=== PATIENT | female | born 1945 | race Caucasian/White ===

== ENCOUNTER 2021-08-15 13:45 | Inpatient (IN) | payer MEDICARE, MEDICAID ==
[~2021-08-15] VITALS: Ht 162.6 cm; Wt 70.1 kg
[2021-08-15 16:12] LABS: HEMOGLOBIN 12.5 g/dl (12.5-16.0); MEAN CELL VOLUME 84 fl (80.0-100.0); MEAN CORPUSCULAR HEMOGLOBIN 28 pg (27-31); MEAN CORPUSCULAR HGB CONC 34 g/dl (33.0-37.0); MEAN PLATELET VOLUME 9.7 fl (7.4-10.4); PLATELET COUNT 185 K/mm3 (130-400); RED BLOOD COUNT 4.42 M/mm3 (4.10-5.30)
[2021-08-15 16:18] LABS: HEMATOCRIT 36.9 % (37.0-47.0)
[2021-08-15 16:24] LABS: ALBUMIN 2.7 gm/dL (3.4-4.8); BILIRUBIN,TOTAL 0.6 mg/dL (0.2-1.2); C-REACTIVE PROTEIN 7.71 mg/dL (0.00-0.50); CALCIUM 8.2 mg/dL (8.4-10.2); CREATININE, serum 0.76 mg/dL (0.57-1.11); POTASSIUM 3.4 mmol/L (3.5-4.5); TOTAL PROTEIN 6.4 gm/dL (6.2-8.1)
[2021-08-15 17:12] LABS: BAND 8 % (0-10); LYMPHOCYTE 13 % (20.0-51.0); NEUTROPHILS 75 % (42.0-75.2); PLATELET ESTIMATE NORMAL (NORMAL)
[2021-08-15] MEDS ORDERED: SYNTHROID0.075 MG/T PO (18:36)
[2021-08-15] MEDS ORDERED: BREO ELLIPTA 21 EACH IH (18:37)
[2021-08-15 21:24] VITALS: BP 115/76; PULSE 94; TEMP 98.5
[2021-08-16 00:52] VITALS: BP 118/72; PULSE 87; TEMP 98.1
[2021-08-16 04:45] VITALS: BP 112/52; PULSE 72; TEMP 97.5
--- NOTE | 2021-08-16 05:36 | NUR ---
UPON ARRIVAL PATIENT WAS ORIENTED TO ROOM. PATIENT RESTED QUIETLY IN BED THROUGHOUT THE NIGHT. NO NEW ISSUES NOTED OR REPORTED BY PATIENT.
[2021-08-16 06:51] LABS: HEMATOCRIT 38.8 % (37.0-47.0); HEMOGLOBIN 12.6 g/dl (12.5-16.0); MEAN CELL VOLUME 87 fl (80.0-100.0); MEAN CORPUSCULAR HEMOGLOBIN 28 pg (27-31); MEAN CORPUSCULAR HGB CONC 33 g/dl (33.0-37.0); MEAN PLATELET VOLUME 9.8 fl (7.4-10.4); PLATELET COUNT 196 K/mm3 (130-400); RED BLOOD COUNT 4.46 M/mm3 (4.10-5.30); REDCELL DISTRIBUTION WIDTH-CV 14.1 % (11.5-14.5)
[2021-08-16 06:53] LABS: C-REACTIVE PROTEIN 8.31 mg/dL (0.00-0.50); CALCIUM 8.6 mg/dL (8.4-10.2); CREATININE, serum 0.74 mg/dL (0.57-1.11)
[2021-08-16 07:40] LABS: MAGNESIUM 2.1 mg/dL (1.6-2.6)
[2021-08-16 08:15] VITALS: BP 119/54; PULSE 82; TEMP 97.8
--- NOTE | 2021-08-16 10:00 | NUR ---
Assessment completed, alert/oriented, vital signs stable, denies pain or discomfort, lungs are CTA/ she is more SOA with exertion but has home O2 at baseline r/t her COPD history, currently on 4L., heart RRR/distal pulses are palpable, she is working with PT/OT, denies other needs at this time
[2021-08-16 11:20] VITALS: BP 131/60; PULSE 94; TEMP 97.9
--- NOTE | 2021-08-16 11:30 | NUR ---
Patient covid+. Intake completed via phone. Patient reports that she lives alone at home in [facility]. States she has been fully independent with her ADL's " up until i got this". Patient utilize a walker to assist with ambulation. Patient utilizes 2L of home oxygen at night that is managed through [facility]. PCP is Dr. Montesinos and and she utilizes [facility] for medications with no cost difficult. Patient does not have a DPOA-HC established. Jayce ([phone]) is her only child and she is . During ER visit, patient's son verbalized concerns over his mothers weakness. Discharge plan: *PT/OT pending
[2021-08-16 16:00] VITALS: BP 128/63; PULSE 91; TEMP 97.6
[2021-08-16 19:48] VITALS: BP 131/55; PULSE 88; TEMP 97.4
[2021-08-17 00:34] VITALS: BP 122/56; PULSE 107; TEMP 97.8
[2021-08-17 04:52] VITALS: BP 122/59; PULSE 91; TEMP 98.7
--- NOTE | 2021-08-17 05:41 | NUR ---
PATIENT CALM AND COOPERATIVE THROUGHOUT THE NIGHT. UP TO THE BATHROOM 3 TIMES THIS SHIFT. FALL PRECAUTIONS IN PLACE. NO NEW ISSUES NOTED OR REPORTED BY PATIENT.
[2021-08-17 07:58] LABS: C-REACTIVE PROTEIN 4.23 mg/dL (0.00-0.50); CALCIUM 8.4 mg/dL (8.4-10.2); CREATININE, serum 0.69 mg/dL (0.57-1.11); POTASSIUM 3.7 mmol/L (3.5-4.5)
[2021-08-17 08:34] VITALS: BP 129/56; PULSE 91; TEMP 98.2
[2021-08-17 08:39] LABS: HEMATOCRIT 38.5 % (37.0-47.0); HEMOGLOBIN 12.7 g/dl (12.5-16.0); MEAN CELL VOLUME 87 fl (80.0-100.0); MEAN CORPUSCULAR HEMOGLOBIN 29 pg (27-31); MEAN CORPUSCULAR HGB CONC 33 g/dl (33.0-37.0); MEAN PLATELET VOLUME 9.9 fl (7.4-10.4); PLATELET COUNT 263 K/mm3 (130-400); RED BLOOD COUNT 4.44 M/mm3 (4.10-5.30); REDCELL DISTRIBUTION WIDTH-CV 13.9 % (11.5-14.5)
--- NOTE | 2021-08-17 09:42 | NUR ---
PT ASSESSED. NO COMPLAINTS OF PAIN OR DYSPNEA. NO SIGNS OR SYMPTOMS OF DISTRESS. CALL LIGHT WITHIN REACH. PT IS COMPLAINING ABOUT MEDICATION AND REPORTS NOT WANTING TO TAKE ANYTHING RELATED TO THE REMDESIVIR. SHE QUSTIONS BOTH MEDICATIONS GIVEN THIS MORNING ASKING IF THEY HAVE ANYTHING TO DO WITH THE REMDESIVIR. EDUCATED AND MEDICATIONS ADMINISTERED, HOWEVER PT STILL APPEARS TO BE UNHAPPY AND ANNOYED AT CARE.
[2021-08-17 12:34] VITALS: BP 122/54; PULSE 92; TEMP 97.8
[2021-08-17 16:15] VITALS: BP 131/63; PULSE 90; TEMP 97.7
[2021-08-17 21:09] VITALS: BP 135/65; PULSE 103; TEMP 98
[2021-08-18 04:57] VITALS: BP 133/63; PULSE 88; TEMP 98.2
[2021-08-18 08:17] VITALS: BP 127/60; PULSE 87; TEMP 97.3
--- NOTE | 2021-08-18 11:13 | NUR ---
PT ASSESSED. NO COMPLAINTS OF PAIN OR DYSPNEA. NO SIGNS OR SYMPTOMS OF DISTRESS. CALL LIGHT WITHIN REACH
[2021-08-18 13:45] VITALS: BP 120/58; PULSE 95; TEMP 97.7
--- NOTE | 2021-08-18 15:12 | NUR ---
ZION faxed referrals to [facility] in [facility].
[2021-08-18 18:28] VITALS: BP 131/62; PULSE 93; TEMP 97.8
[2021-08-18 18:30] VITALS: BP 131/62; PULSE 20; TEMP 97.8
[2021-08-19] VITALS (7 sets, daily range): BP systolic 117–151; BP diastolic 60–74; PULSE 79–95; TEMP 97.4–98
[2021-08-19 07:10] LABS: HEMATOCRIT 39.5 % (37.0-47.0); HEMOGLOBIN 12.7 g/dl (12.5-16.0); MEAN CELL VOLUME 87 fl (80.0-100.0); MEAN CORPUSCULAR HEMOGLOBIN 28 pg (27-31); MEAN CORPUSCULAR HGB CONC 32 g/dl (33.0-37.0); PLATELET COUNT 291 K/mm3 (130-400); RED BLOOD COUNT 4.52 M/mm3 (4.10-5.30); REDCELL DISTRIBUTION WIDTH-CV 13.9 % (11.5-14.5)
[2021-08-19 07:28] LABS: CALCIUM 8.7 mg/dL (8.4-10.2); CREATININE, serum 0.69 mg/dL (0.57-1.11)
--- NOTE | 2021-08-19 09:54 | NUR ---
PT ASSESSED. NO COMPLAINTS OF PAIN OR DYSPNEA. NO SIGNS OR SYMPTOMS OF DISTRESS. CALL LIGHT WITHIN REACH
--- NOTE | 2021-08-19 14:36 | NUR ---
Social Work student faxed updates to both [facility] and [facility].
[2021-08-20 05:39] VITALS: BP 141/74; PULSE 93; TEMP 97.5
[2021-08-20 06:31] LABS: HEMATOCRIT 39.1 % (37.0-47.0); HEMOGLOBIN 13.1 g/dl (12.5-16.0); MEAN CELL VOLUME 87 fl (80.0-100.0); MEAN CORPUSCULAR HEMOGLOBIN 29 pg (27-31); MEAN CORPUSCULAR HGB CONC 34 g/dl (33.0-37.0); MEAN PLATELET VOLUME 10.1 fl (7.4-10.4); PLATELET COUNT 342 K/mm3 (130-400); RED BLOOD COUNT 4.51 M/mm3 (4.10-5.30)
[2021-08-20 06:50] LABS: ALBUMIN 2.6 gm/dL (3.4-4.8); CALCIUM 8.6 mg/dL (8.4-10.2); CREATININE, serum 0.69 mg/dL (0.57-1.11); MAGNESIUM 2.3 mg/dL (1.6-2.6); PHOSPHOROUS 3.2 mg/dL (2.3-4.7); POTASSIUM 4.2 mmol/L (3.5-4.5)
[2021-08-20 08:34] LABS: LYMPHOCYTE 14 % (20.0-51.0); NEUTROPHILS 78 % (42.0-75.2); PLATELET ESTIMATE NORMAL (NORMAL)
[2021-08-20 08:45] VITALS: BP 129/76; PULSE 80; TEMP 97.3
--- NOTE | 2021-08-20 10:15 | NUR ---
PHYSICAL THERAPY AT BEDSIDE WITH PT. PT STATES THAT SHE IS FEELING "WEAK AND SHAKY". PT OS WAS AT 96% ON 3.5 LITERS VIA NC. PT BS WAS 187. PT STATES THAT SHE DOES NOT FEEL LIKE FOING THERAPY TODAY. "I JUST WANT TO GO LAY DOWN IN BED, I THINK THAT I OVER DID IT YESTERDAY." DR. LAKE AT BEDSIDE STATES THAT SHE IS "PROBABLY WEAK FROM THE INFECTION." HELPED PT FROM CHAIR BACK TO BED. CALL LIGHT WAS PLACED WITHIN REACH. PT STATES NO OTHER NEEDS AT THIS TIME.
[2021-08-20 12:27] VITALS: BP 131/62; PULSE 78; TEMP 97.5
--- NOTE | 2021-08-20 14:37 | NUR ---
Bj at [facility] advised they can accept patient 10 days after patient's positive covid test and if they have bed availability at that time.
[2021-08-20 15:48] VITALS: BP 142/76; PULSE 84; TEMP 97.9
--- NOTE | 2021-08-20 15:55 | NUR ---
PT UP IN CHAIR. PT STATES THAT SHE ALREADY TOOK ALL OF HER MEDICATIONS THIS AM. PT STATES THAT SHE IS NOT HAVING PAIN. NO OTHER NEEDS WERE VOICED. CALL LIGHT IS WITHIN REACH.
[2021-08-20 21:16] VITALS: BP 134/60; PULSE 83; TEMP 98
[2021-08-21] VITALS (7 sets, daily range): BP systolic 114–158; BP diastolic 59–81; PULSE 80–93; TEMP 97.3–97.8
--- NOTE | 2021-08-21 05:48 | NUR ---
THIS NURSE WAS INSTRUCTED AT BEGINNING OF SHIFT BY PREVIOUS SHIFT THAT PT HAS PERSONAL MEDICATIONS IN ROOM AND STAFF IS FOLLOWING. THIS NURSE DID NOT BRING PT ANY STOCK MEDS. PT VERBALIZES SHE WOULD TAKE THIS MORNING LEVOTHYROXINE FROM HER OWN PERSONAL MEDICATION STORAGE. THIS NURSE REVIEWED THE IMPORTANCE OF CONTRAINDICATIONS AND SAFETY WELL WAY TO AVOID MISHANDLING. PT VERBALIZES UNDERSTANDING. PT A/OX4. ALL NEEDS MET THI SHIFT. [facility].
[2021-08-21 06:39] LABS: HEMATOCRIT 39.6 % (37.0-47.0); HEMOGLOBIN 12.7 g/dl (12.5-16.0); MEAN CELL VOLUME 88 fl (80.0-100.0); MEAN CORPUSCULAR HEMOGLOBIN 28 pg (27-31); MEAN CORPUSCULAR HGB CONC 32 g/dl (33.0-37.0); MEAN PLATELET VOLUME 9.9 fl (7.4-10.4); PLATELET COUNT 397 K/mm3 (130-400); REDCELL DISTRIBUTION WIDTH-CV 13.7 % (11.5-14.5)
--- NOTE | 2021-08-21 07:00 | NUR ---
Report received from SARAH Eason. PT in bed resting ,will continue to monitor.
[2021-08-21 07:09] LABS: ALBUMIN 2.7 gm/dL (3.4-4.8); CALCIUM 8.6 mg/dL (8.4-10.2); CREATININE, serum 0.69 mg/dL (0.57-1.11); MAGNESIUM 2.3 mg/dL (1.6-2.6); PHOSPHOROUS 3.1 mg/dL (2.3-4.7)
[2021-08-21 07:47] LABS: BAND 1 % (0-10); LYMPHOCYTE 12 % (20.0-51.0); NEUTROPHILS 80 % (42.0-75.2)
[2021-08-21 07:48] LABS: PLATELET ESTIMATE NORMAL (NORMAL)
--- NOTE | 2021-08-21 09:50 | NUR ---
Assessment charted. Pt up with therapy. Very concerned about lovenox shot, gave and pt much less anxious. Resting in chair eating, denies pain. Has own home meds: levothyroxine, breo, and claritin that pt took at 0515 on own. Denies pain, on 2L NC states she feels no more short of breath than normal, 2L NC is baseline. INT to WILI. Resting well, denies needs, will continue to monitor,.
--- NOTE | 2021-08-21 14:35 | NUR ---
Poacher Wringer Operator attempted to contact patient with no answer. SW contacted patient's son, Jayce and provided update. SW advised Jayce that [facility] can accept patient after day 10 and he is agreeable to this plan. Discharge Plan: [facility]
--- NOTE | 2021-08-21 19:33 | NUR ---
Report given to nightshift nurse. Pt resting in bed or up to chair, doing well and not over exerting herself. Denies needs.
[2021-08-22 00:32] VITALS: BP 127/83; PULSE 91; TEMP 97.6
[2021-08-22 04:00] VITALS: BP 138/65; PULSE 64; TEMP 97.9
--- NOTE | 2021-08-22 05:22 | NUR ---
PT TOLERATED BIPAP ALL NIGHT. FIO2 DECREASED TO 55. PUREWICK IN PLACE AND FULLY FUNCTIONAL.PT EXPRESSES NO ADDITIONAL NEEDS AT THIS TIME. ALL NEEDS MET THIS SHIFT. CALL LIGHT WITHIN REACH.
--- NOTE | 2021-08-22 05:23 | NUR ---
PT HAD UNEVENTFUL NIGHT THIS SHIFT.PT REMAINS ON 2L (BL) OF 02. 3 ALL NEEDS MET. CALL LIGHT WITHIN REACH.
--- NOTE | 2021-08-22 05:38 | NUR ---
AT THIS TIME PT REFUSES LAB DRAW FROM PRINT FINISHER. PT PROVIDED EDUCATION ON IMPORTANCE. PT CONTINUES TO REFUSE LAB DRAW.
[2021-08-22 08:52] VITALS: BP 117/63; PULSE 91; TEMP 97.5
[2021-08-22 12:49] VITALS: BP 134/50; PULSE 83; TEMP 97.7
--- NOTE | 2021-08-22 15:04 | NUR ---
Optical Instrument Assembly Supervisor faxed clinical updates to [facility]. SW contacted patient and updated her that [facility] can accept her on Thursday. Patient is agreeable to discharge to [facility]. Discharge Plan: [facility] SNF
[2021-08-22 16:41] VITALS: BP 121/54; PULSE 87
--- NOTE | 2021-08-22 18:35 | NUR ---
Patient has had an uneventful day. Currently requiring 0.5L of O2 via nasal cannula. VSS. Patient A&O. Patient denies any pain, discomfort, SOA. or further needs at this time. Call light in reach. Fall percautions in place.
[2021-08-22 20:31] VITALS: BP 142/59; PULSE 87; TEMP 97.8
[2021-08-23 04:20] VITALS: BP 132/61; PULSE 85; TEMP 97.5
[2021-08-23 06:30] LABS: HEMOGLOBIN 13.2 g/dl (12.5-16.0); MEAN CELL VOLUME 87 fl (80.0-100.0); MEAN CORPUSCULAR HEMOGLOBIN 29 pg (27-31); MEAN CORPUSCULAR HGB CONC 33 g/dl (33.0-37.0); MEAN PLATELET VOLUME 9.8 fl (7.4-10.4); PLATELET COUNT 431 K/mm3 (130-400); RED BLOOD COUNT 4.61 M/mm3 (4.10-5.30); REDCELL DISTRIBUTION WIDTH-CV 13.9 % (11.5-14.5)
[2021-08-23 06:47] LABS: ALBUMIN 2.9 gm/dL (3.4-4.8); CALCIUM 9.2 mg/dL (8.4-10.2); CREATININE, serum 0.71 mg/dL (0.57-1.11); MAGNESIUM 2.5 mg/dL (1.6-2.6); PHOSPHOROUS 3.8 mg/dL (2.3-4.7); POTASSIUM 4.3 mmol/L (3.5-4.5)
[2021-08-23 07:25] VITALS: BP 126/66; PULSE 93; TEMP 98
[2021-08-23 08:29] LABS: BAND 1 % (0-10); LYMPHOCYTE 14 % (20.0-51.0); METAMYELOCYTE 2 % (0-0); NEUTROPHILS 72 % (42.0-75.2)
[2021-08-23 08:30] LABS: PLATELET ESTIMATE NORMAL (NORMAL)
[2021-08-23 11:17] VITALS: BP 133/61; PULSE 86; TEMP 97.8
--- NOTE | 2021-08-23 11:58 | NUR ---
Scheduled medications given. Shift assessment performed. VSS. Patient A&O. Patient denies any pain, discomfort, SOA, or further needs at this time. Call light in reach.
--- NOTE | 2021-08-23 15:24 | NUR ---
automobile body worker faxed authorization request to [facility] for admission Thursday to [facility] for skilled care.
[2021-08-23 16:52] VITALS: BP 132/65; PULSE 80; TEMP 98.2
[2021-08-23 19:18] VITALS: BP 138/69; PULSE 85; TEMP 98.1
[2021-08-23 23:15] VITALS: BP 128/50; PULSE 76; TEMP 98
[2021-08-24 04:13] VITALS: BP 120/74; PULSE 86; TEMP 97.7
--- NOTE | 2021-08-24 05:00 | NUR ---
NO NEW ISSUES NOTED OR REPORTED BY PATIENT THROUGHOUT THE SHIFT. PATIENT CALM AND COOPERATIVE.
[2021-08-24 07:27] LABS: HEMATOCRIT 41.4 % (37.0-47.0); HEMOGLOBIN 13.5 g/dl (12.5-16.0); MEAN CELL VOLUME 87 fl (80.0-100.0); MEAN CORPUSCULAR HEMOGLOBIN 28 pg (27-31); MEAN CORPUSCULAR HGB CONC 33 g/dl (33.0-37.0); MEAN PLATELET VOLUME 10.4 fl (7.4-10.4); PLATELET COUNT 474 K/mm3 (130-400); RED BLOOD COUNT 4.77 M/mm3 (4.10-5.30); REDCELL DISTRIBUTION WIDTH-CV 13.9 % (11.5-14.5)
--- NOTE | 2021-08-24 07:39 | NUR ---
PT SITTING UP IN CHAIR. RESP AT BED SIDE. PT STATES THAT SHE "WANTS TO BE LEFT ALONE." "I JUST NEED TO READJUST AND GET COMFORTABLE." ASSISTED PT TO RESPOSITION IN BED. PT STATES THAT SHE IS NOT AHVING PAIN AND DOES NOT NEED ANYTHING ELSE. "JUST LEAVE ME ALONE AND LET ME REST." LEIAL NAVABRITTABenji IS WITHIN REACH.
[2021-08-24 07:51] LABS: ALBUMIN 3.3 gm/dL (3.4-4.8); CALCIUM 9.2 mg/dL (8.4-10.2); CREATININE, serum 0.73 mg/dL (0.57-1.11); MAGNESIUM 2.6 mg/dL (1.6-2.6); PHOSPHOROUS 3.6 mg/dL (2.3-4.7); POTASSIUM 4.6 mmol/L (3.5-4.5)
[2021-08-24 08:02] LABS: BAND 4 % (0-10); HYPOCHROMIA 1+; LYMPHOCYTE 18 % (20.0-51.0); MYELOCYTE 1 % (0-0); NEUTROPHILS 69 % (42.0-75.2); PLATELET ESTIMATE INCREASED (NORMAL)
--- NOTE | 2021-08-24 09:14 | NUR ---
PT SITTING UP AT BEDSIDE BALANCING WALLET AND POP CAP UNDER HAND. PT STATES THAT SHE CAN NOT DO ANYTHING ELSE "I HAVE TO BALANCE THIS, IT IS PROTOCOL." TRIED TO GET PT TO EXPLAIN THE PURPOSE. PT BECAME VERY AGITATED AND STARTS YELLING "LEAVE ME ALONE, I NEED TO CONCENTRATE." PT REFUSES TO TAKE MEDICATIONS, EAT BREAKFAST OR MOVE. TRIED TO EXPLAIN TO PT THAT BALANCING HER WALLET WAS NOT GOING TO HELP HER WITH HER COVID. PT DID NOT VOICE UNDERSTANDING. JUST KEEPS STATING "LEAVE ME ALONE." EXPLAINED TO PT THAT I WOULD LEAVE AND IF SHE NEEDED ANYTHING TO PUT THE CALL LIGHT ON. ORIENTED PT TO LIGHT. PT STATES "OH, IF I NEED SOMETHING I WILL LET YOU KNOW." CALL LIGHT IS WITHIN REACH.
--- NOTE | 2021-08-24 10:34 | NUR ---
PT SITTING UP IN BED. PT STATING THAT SHE "NEEEDS HELP." PT STATES THAT SHE NEEDS ME TO "PUSH THE WHITE BUTTON." GOT PTS CALL LIGHT FOR HER AND SHE STARTS YELLING "PUSH THE BUTTON, PUSH THE BUTTON." I ASKED PT TO TELL ME WHERE THE BUTTON IS AND PT STATES "THE WHITE ONE ON MY ARM." THE "WHITE BUTTON" WAS A GUAZE AND PAPER TAPE ON HER ARM. ONCE I PUSHED IT, PT STATES "OK, NOW I AM GOOD TO GO AND CAN EAT." ASSISTED PT TO SIT UP AT SIDE OF BED AND EAT BREAKFAST. PT STATES NO OTHER NEEDS AT THIS TIME. 2 LIT VIA NC IS ON. PT 02 IS AT 96%. CALL LIGHT IS WITHIN REACH. ON FLOOR AND INFORMED HIM OF PT CURRENT STATE. STATES "OK, I WILL GET TO HER."
[2021-08-24 12:14] VITALS: BP 132/61; PULSE 83; TEMP 97.6
--- NOTE | 2021-08-24 14:50 | NUR ---
SW called son to review IM form and obtain verbal consent for form. Patient due to go to [facility] on Thursday, 2021 Form placed in patient's chart and copy made. SW will continue to follow.
[2021-08-24 16:25] VITALS: BP 139/65; PULSE 105; TEMP 97.5
--- NOTE | 2021-08-24 18:47 | NUR ---
PT LAYING IN BED COVERED UP. PT STATES THAT SHE DOES NOT WANT ANY DINNER BUT DOES WANT TO DRINK HER ENSURE. PT STATES THAT SHE IS NOT HAVING ANY PAIN OR VOICED ANY OTHER NEEDS AT THIS TIME. CALL LIGHT IS WITHIN REACH.
[2021-08-24 20:44] VITALS: BP 118/93; PULSE 90; TEMP 98.2
[2021-08-25 00:23] VITALS: BP 110/47; PULSE 81; TEMP 97.5
[2021-08-25 04:44] VITALS: BP 131/83; PULSE 86; TEMP 97.8
--- NOTE | 2021-08-25 06:00 | NUR ---
ASSESSMENT COMPLETE FOR THIS SHIFT. PT RESTING IN BED SLEEPING. PT DENIED PAIN, PALPITATIONS, N,V,D, SOB OR DIZZINESS. PT REFUSED HER SYNTHROID THIS MORNING, STATING, SHE HAS HER OWN AND SHE WILL TAKE IT AT 0930HRS, THIS MORNING. PT HAD AN OTHERWISE UNEVENTFUL NIGHT THIS SHIFT. PT EXPRESSED NO OTHER NEEDS AT THIS TIME. CALL LIGHT WITHIN REACH.
--- NOTE | 2021-08-25 06:58 | NUR ---
PT STANDING UP AT SINK. STATES THAT SHE NEEDS TO GO TO THE BATHROOM. ASSISTED PT VIA WALKER TO BATHROOM. PT VOIDED AND HAVING BM. PT STATES THAT SHE IS NOT HAVING ANY PAIN. ASSISTED PT BACK TO BED VIA WALKER. PT STATES THAT SHE DOES NOT NEED ANYTHING AT THIS TIME. 2L VIA NC ON. CALL LIGHT IS WITHIN REACH.
[2021-08-25 07:40] VITALS: BP 126/60; PULSE 100; TEMP 97.4
--- NOTE | 2021-08-25 13:53 | NUR ---
ATEMPTTED TO CONTACT PT SON, NO ANSWER.
[2021-08-25 15:53] VITALS: BP 136/66; PULSE 101; TEMP 97.5
--- NOTE | 2021-08-25 18:05 | NUR ---
PT LAYING IN BED STATING THAT SHE IS COLD. GOT PT A WARM BLANET. PT STATES NO OTHER NEEDS AT THIS TIME. CALL LIGHT IS WITHIN REACH.
[2021-08-25 19:43] VITALS: BP 137/71; PULSE 114; TEMP 98.4
[2021-08-26 00:03] VITALS: BP 126/53; PULSE 95; TEMP 97.5
[2021-08-26 04:15] VITALS: BP 151/55; PULSE 93; TEMP 98.7
--- NOTE | 2021-08-26 05:30 | NUR ---
ASSESSMENT COMPLETE FOR THIS SHIFT. PT RESTING IN BED SLEEPING. PT DENIED PAIN, PALPITATIONS, N,V,D OR DIZZINESS. PT FEELS LIKE HE IS BREATHING BETTER TONIGHT AND I FEEL LIKE HIS LUNGS SOUND BETTER THEN THE NIGHT BEFORE. PT EXPRESSED NO OTHER NEEDS AT THIS TIME. CALL LIGHT WITHIN REACH.
[2021-08-26 08:37] VITALS: BP 123/61; PULSE 95; TEMP 97.6
[2021-08-26] MEDS ORDERED: RT Albuterol HFA MDI IH (11:34)
[2021-08-26 11:36] VITALS: BP 141/81; PULSE 92; TEMP 97.5
--- NOTE | 2021-08-26 12:54 | NUR ---
PT SITTING UP IN BED. STATES THAT SHE IS HAVING TROUBLE UNLOCKING HER PHONE. ATTEMPTED TO ASSIST PT TO HELP UNLOCK IT, UNSUCCESSFUL. PT STATES THAT SHE IS NOT HAVING ANY PAIN AT THIS TIME. CALL LIGHT IS WITHIN REACH.
[2021-08-26] MEDS ORDERED: OXYGEN NASAL.CANN (13:59)
--- NOTE | 2021-08-26 16:05 | NUR ---
Reclaimer received a message from [facility] requesting a peer to peer for authorization request for SNF. ZION facilitated a phone call between Hospitalist and [facility]. Medical provider for [facility] requested updated clinicals and therapy notes. ZION faxed requested updates. ZION was then contacted by Cira Faust (ph#[phone]) at [facility] who advised patient's authorization request for SNF was denied as the medical provider that reviewed the request advised that patient's needs can be met at a lower level of care. Cira advised the patient can appeal this if she chooses. ZION contacted Hospitalist who will put in orders for Home Health services as SNF was denied by [facility]. ZION attempted to contact patient by phone with no sucess. ZION then spoke with patient while standing outside her door to provide update. ZION advised patient [facility] declined SNF and patient verbalized understanding. Patient stated that she would be agreeable to have Home Health services set up with [facility]. ZION contacted patient's son, Jayce to provide update. Jayce is very upset by [facility]'s decision to deny a SNF stay and does not feel this is right. Jayce states he will machine pecan picker patient later this afternoon. ZION contacted Thalia at [facility] and faxed referral/discharge orders. Thalia advised they can accept referral and will admit patient tomorrow at 1400. Thalia reported that she has been in contact with patient's son, Jayce. ZION faxed updated oxygen orders to [facility] as patient only had nighttime oxygen. Lg benoit delivered a tank of oxygen to patient's room for her to get home on. Discharge Plan: Home with [facility]
--- NOTE | 2021-08-26 16:32 | NUR ---
SPOKE TO PT SON. SON VERY CONCERNED ABOUT BRINGING PT HOME. STATES THAT HE IS AFRAID THAT HE IS GOING TO TAKE HER HOME TODAY AND "FIND HER IN THE MORNING." AFTER FURTHER CONVERSATION SON STATES THAT HE WILL TRY TO BRING THE PT HOME WITH HIM AND LET HER STAY WITH HIM FOR A LITTLE WHILE. SON STATES THAT HE WILL BE TO THE ER EXIT TO GET PT AROUND 4. INFORMED PT THAT SON WILL BE COMING AT 4 TO GET HER. PT VOICED UNDERSTANDING. PT HAS PORTABLE 02 TANK AT [facility]. ASSISTED PT TO POTTY AND TO HELP GET DRESSED AND GET HER THINGS IN A BAG. PT STATES SHE DOES NOT NEED ANYTHING AT THIS TIME. CALL LIGHT IS WITHIN REACH.
--- NOTE | 2021-08-27 15:19 | NUR ---
Ticket Dispenser Changer was contacted by patient's daughter in law, Akiko Sanford who advised when they got patient home last night, patient yelled at them stating "you are trying to kill me". Akiko advised patient has been behaving strangely and talking about a "virtual rehab protocol" throughout the home. Akiko advised this is not patient's typical behavior. ZION contacted Claudette, Watch Crystal Edge Grinder at [facility] who contacted patient's family and set up follow up visit for today with Dr. Anderson as patient's regular PCP Dr. Montesinos is out of the office. ZION was then contacted by Claudette and Dr. Anderson who inquired about contact information for [facility]. ZION provided. 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 Patient to return home with son ambreenvinny and Claudette advised she would fax updated notes to [facility] in hopes they will reconsider for SNF. ZION updated Thalia at [facility] who will follow up with son on rescheduling intake.
== END 2021-08-26 16:05 | disposition home health service (06) | DRG 177 ==
LOC: COL.ER 13:45 → MEDICAL 16:40 → EDBEDREQTM 17:51 → MEDICAL 08-16 05:42
PROVIDERS: Family Medicine; Internal Medicine; ADMIT Internal Medicine
PROC: XW033E5 Introduction of Remdesivir Anti-infective into Peripheral Vein, Percutaneous Approach, New Technology Group 5 (ICD-10-PCS; principal; 2021-08-15)
DX: U07.1 COVID-19 (principal); J96.21 Acute and chronic respiratory failure with hypoxia; J44.9 Chronic obstructive pulmonary disease, unspecified; E03.9 Hypothyroidism, unspecified; E87.6 Hypokalemia; Z99.81 Dependence on supplemental oxygen; Z87.891 Personal history of nicotine dependence
CPT/HCPCS: 99222-AI; 99231-AI; 99232-AI; 99233-AI; 99239; J0248; J0456; J0696; J1650; J2405; J7050; J7120; J8540